=== PATIENT | female | born 1965 | race Caucasian/White ===

== ENCOUNTER 2020-10-01 14:57 | Inpatient (IN) | payer MEDICAID ==
[~2020-10-01] VITALS: Ht 167.6 cm; Wt 123.4 kg
[2020-10-01 15:48] LABS: BASOPHILS 0.2 % (0-2); EOSINOPHILS 1.5 % (0-7); HEMATOCRIT 24.9 % (36.0-48.0); IMMATURE GRANULOCYTES 0.1 % (0-5); LYMPHOCYTE ABS# 1.98 10x3/uL (1.18-3.74); LYMPHOCYTES 23.2 % (15-50); MCH 24.5 pg (26.0-34.0); MCHC 29.7 g/dL (31.0-37.0); MCV 82.5 fL (80.0-100.0); MEAN PLATELET VOLUME 9.7 fL (7.4-10.4); MONOCYTES 4.7 % (2-11); NEUTROPHIL ABS# 5.99 10x3/uL (1.56-6.13); NEUTROPHILS 70.3 % (40-80); PLATELET COUNT 359 10x3/uL (130-400); RBC 3.02 10x6/uL (4.00-5.40); RDW 18.5 % (11.5-14.5); WBC 8.5 10x3/uL (4.8-10.8)
[2020-10-01 15:55] LABS: INR 1.2 (0.85-1.17); PROTIME 14.1 SECONDS (11.6-15.0)
[2020-10-01 16:00] LABS: HEMOGLOBIN 7.4 g/dL (12-16)
[2020-10-01 16:28] LABS: ALKALINE PHOSPHATASE 70 U/L (30-120); ALT (SGPT) 22 U/L (10-68); BILIRUBIN - TOTAL 0.11 mg/dL (0.2-1.3); CALC OSMOLALITY 289 mosm/kg (275-300); CALCIUM 8.6 mg/dL (8.5-10.1); CARBON DIOXIDE 26.6 mmol/L (21.0-32.0); CHLORIDE - SERUM 108 mmol/L (98-107); CREATININE - SERUM 0.8 mg/dL (0.6-1.3); GLUCOSE 106 mg/dL (74-106); POTASSIUM - SERUM 4.3 mmol/L (3.5-5.1); PRO BNP 70 pg/mL (0-125); PROTEIN - SERUM 5.8 g/dL (6.4-8.2); SODIUM 144 mmol/L (136-145); UREA NITROGEN 21 mg/dL (7-18); eGFR NON AFRICAN AMERICAN 78 mL/min (90-120)
[2020-10-01 17:31] VITALS: BP 133/78
[2020-10-01] MEDS ORDERED: OMEPRAZOLE40 MG PO (18:04)
[2020-10-01] MEDS ORDERED: ZOCOR20 MG PO (18:05)
[2020-10-01] MEDS ORDERED: TOPROL XL25 MG PO (18:05)
[2020-10-01] MEDS ORDERED: CARAFATE1 G PO (18:05)
[2020-10-01] MEDS ORDERED: FERROUS SULFAT325 MG PO (18:06)
[2020-10-01] MEDS ORDERED: OS-CAL500 MG PO (18:07)
[2020-10-01] MEDS ORDERED: CENTRUM SILVER1 EAC3 PO (18:07)
[2020-10-01] MEDS ORDERED: VITAMIN D325 MC1 PO (18:07)
[2020-10-01] MEDS ORDERED: GARLIQUE PO (18:08)
[2020-10-01 18:34] VITALS: BP 133/78
--- NOTE | 2020-10-02 05:22 | NUR ---
Pt has been resting in bed with spouse in recliner next to her. Recieved 2 Units of PRBC without adverse reactions. Continues resting in bed with VSS. No c/o pain/discomfort.
[2020-10-02 05:42] LABS: BASOPHILS 0.6 % (0-2); EOSINOPHILS 3.9 % (0-7); HEMATOCRIT 27.4 % (36.0-48.0); HEMOGLOBIN 8.5 g/dL (12-16); IMMATURE GRANULOCYTES 0.1 % (0-5); LYMPHOCYTE ABS# 1.88 10x3/uL (1.18-3.74); LYMPHOCYTES 28.1 % (15-50); MCH 25.5 pg (26.0-34.0); MCV 82.3 fL (80.0-100.0); MONOCYTES 6.7 % (2-11); NEUTROPHIL ABS# 4.05 10x3/uL (1.56-6.13); NEUTROPHILS 60.6 % (40-80); PLATELET COUNT 291 10x3/uL (130-400); RBC 3.33 10x6/uL (4.00-5.40); RDW 17.1 % (11.5-14.5); RETIC 2.41 % (0.45-2.28); WBC 6.7 10x3/uL (4.8-10.8)
[2020-10-02 05:54] LABS: % SATURATION 4 % (15-55); IRON 14 ug/dl (35-150); TOTAL IRON BIND CAPACITY 324 ug/dl (260-445); UNSAT IRON BIND CAPACITY 310 ug/dl (150-375)
[2020-10-02 06:23] LABS: ALBUMIN 2.7 g/dL (3.4-5.0); ALKALINE PHOSPHATASE 62 U/L (30-120); ALT (SGPT) 20 U/L (10-68); BILIRUBIN - TOTAL 0.28 mg/dL (0.2-1.3); CALCIUM 8.5 mg/dL (8.5-10.1); CARBON DIOXIDE 26.8 mmol/L (21.0-32.0); CHLORIDE - SERUM 111 mmol/L (98-107); CREATININE - SERUM 0.8 mg/dL (0.6-1.3); FERRITIN 15 ng/mL (3-244); GLUCOSE 87 mg/dL (74-106); PROTEIN - SERUM 5.5 g/dL (6.4-8.2); SODIUM 145 mmol/L (136-145); eGFR NON AFRICAN AMERICAN 78 mL/min (90-120)
[2020-10-02 06:25] LABS: CALC OSMOLALITY 288 mosm/kg (275-300); POTASSIUM - SERUM 3.6 mmol/L (3.5-5.1); UREA NITROGEN 15 mg/dL (7-18)
[2020-10-02 08:07] VITALS: BP 104/46
[2020-10-02 09:34] LABS: BILIRUBIN NEGATIVE (NEGATIVE); KETONE NEGATIVE (NEGATIVE); NITRITE NEGATIVE (NEGATIVE); UROBILINOGEN NORMAL mg/dL (< 2)
[2020-10-02 09:36] LABS: BACTERIA MODERATE HPF (NONE SEEN); SQUAMOUS EPITHELIAL 0-5 HPF (0-4)
--- NOTE | 2020-10-02 11:47 | NUR ---
PT BACK TO ROOM FROM PACU IN STABLE CONDITION
[2020-10-02] MEDS ORDERED: PROTONIX40 MG PO (12:39)
[2020-10-02 13:38] VITALS: Ht 167.6 cm; Wt 123.4 kg
[2020-10-02] MEDS ORDERED: PEPCID40 MG PO (14:07)
--- NOTE | 2020-10-02 19:32 | MORECARE ---
CASE MANAGEMENT DISCHARGE SUMMARY PATIENT: ANURAG SHEFFIELD UNIT: [id number] ADM DATE: 10/01/20 AGE: 55 : 63 SEX: F ROOM/BED: D.2206 AUTHOR: JUANISDOC PHYSICIAN: REFERRING PHYSICIAN: JANE ZHENG MD DATE OF SERVICE: 10/02/20 Case Management Discharge Planning Summary DCP REVIEW SUMMARY ANTICIPATED D/C DATE: 10/02/2020 EXPECTED LOS : 1 CASE STATUS: DCP Initiated INITIAL REVIEW: 10/01/2020 INITIAL REVIEWER: Oscar Ambrose FINAL DISCHARGE DISPOSITION: : FINAL REVIEWER: FINAL REVIEW DATE: DCP Focus Questions & Answers DCP Evaluation QUESTION: ANSWER Patient gives permission to discuss discharge plans with: (name, relationship and number) : spouse, Andrade Sheffield, Patient's ability to cope with chronic illness : d. No chronic illness Patient's current cognitive status: : *Oriented to person, place, situation, time and present Family / Caregiver's ability to cope with chronic illness: : a. Adequate (ability to meet patient's medical needs, ensures patient attends medical appts.) Patient and/or caregiver agree upon recommended discharge plan? : Yes Physical Status: : Independent with ADL's Family / Caregiver's ability to cope with chronic illness: : a. Adequate (ability to meet patient's medical needs, ensures patient attends medical appts.) Functional screen assessment: : Basic needs can adequately be met by self Does the patient have the ability to pay for or attain post discharge needs / services? : Yes Living Arrangements: : Home with Spouse/Significant Other Is there a likelihood that the patient will require additional services to return to the preadmission environment? : No Equipment needed for post hospitalization: : None Baseline cognitive status: : *Oriented to person, place, situation, time and present Patient with capacity for self-care or can be cared for in same environment as prior to hospitalization? : Yes Physical environment modification needed / anticipated for discharge: : No Medication Management: : Patient states can afford medications Medication Management: : Patient states can read and understand medication labels Pharmacy name(s): : [facility] in [place] Does Patient have transportation to get home and to follow-up medical appointments when discharged from the hospital? : Yes Would patient like to participate in any Care Coordination programs (if applicable): : Not applicable Does the patient have electricity at home? : Yes Does the patient have running water in their house? : Yes Equipment in use: : None Mental health screen: : No mental health history DCP Re-evaluation QUESTION: ANSWER Would patient like to participate in any Care Coordination programs (if applicable): : Not applicable PATIENT: NAURAG SHEFFIELD ENCOUNTER: [id number] MEDICAL RECORD#: [id number] ADMISSION DATE: 10/01/2020 DISCHARGE DATE: 10/02/2020 ATTENDING MD: JANE BAIRD : AGE: 55 MARITAL STATUS: M DC PLAN ID: [id number] FACILITY: [facility] PRINTED ON: 10/02/20 19:32 CT All edits/amendments must be made on the electronic document DICTATION DATE: 10/02/201931 SOLUTION ARCHITECT: VENUS 10/02/201931 RPT#: [id number] DC DATE:10/02/20 STATUS: DIS IN [facility] [address] [place] [address] END OF REPORT
--- NOTE | 2020-10-02 19:43 | MORECARE ---
CASE MANAGEMENT DISCHARGE SUMMARY PATIENT: ANURAG SHEFFIELD UNIT: [id number] ADM DATE: 10/01/20 AGE: 55 : 63 SEX: F ROOM/BED: D.2206 AUTHOR: JUANISDOC PHYSICIAN: REFERRING PHYSICIAN: JANE ZHENG MD DATE OF SERVICE: 10/02/20 Case Management Discharge Planning Summary COMMENTS ENTERED DATE: 10/02/20 19:32 CT COMMENT TYPE: Discharge Planning REVIEWER: Oscar Ambrose CM met with patient to complete DC plan and to evaluate needs. Patient lives independently with her spouse, Andrade Sheffield, . Patient stated that her home is safe and has electricity and running water. Patient stated that she has no problems paying for medications and she fills her medications at [facility] in [place]. Patient stated that her primary care physician is Dr. Eckert. At discharge, the patient plans to return home and feels this is a safe discharge. CM discussed availability of home health, rehab services, and medical equipment. Patient voiced no other needs at this time and is satisfied with DC plan. Transportation provider at discharge will be with her , Andrade. CM will continue to follow and will assist as needed with dc plans/needs. DCP REVIEW SUMMARY ANTICIPATED D/C DATE: 10/02/2020 EXPECTED LOS : 1 CASE STATUS: DCP Initiated INITIAL REVIEW: 10/01/2020 INITIAL REVIEWER: Oscar Ambrose FINAL DISCHARGE DISPOSITION: : FINAL REVIEWER: FINAL REVIEW DATE: DCP Focus Questions & Answers DCP Evaluation QUESTION: ANSWER Patient gives permission to discuss discharge plans with: (name, relationship and number) : spouse, Andrade Sheffield, Patient's ability to cope with chronic illness : d. No chronic illness Patient's current cognitive status: : *Oriented to person, place, situation, time and present Family / Caregiver's ability to cope with chronic illness: : a. Adequate (ability to meet patient's medical needs, ensures patient attends medical appts.) Patient and/or caregiver agree upon recommended discharge plan? : Yes Physical Status: : Independent with ADL's Family / Caregiver's ability to cope with chronic illness: : a. Adequate (ability to meet patient's medical needs, ensures patient attends medical appts.) Functional screen assessment: : Basic needs can adequately be met by self Does the patient have the ability to pay for or attain post discharge needs / services? : Yes Living Arrangements: : Home with Spouse/Significant Other Is there a likelihood that the patient will require additional services to return to the preadmission environment? : No Equipment needed for post hospitalization: : None Baseline cognitive status: : *Oriented to person, place, situation, time and present Patient with capacity for self-care or can be cared for in same environment as prior to hospitalization? : Yes Physical environment modification needed / anticipated for discharge: : No Medication Management: : Patient states can afford medications Medication Management: : Patient states can read and understand medication labels Pharmacy name(s): : [facility] in [place] Does Patient have transportation to get home and to follow-up medical appointments when discharged from the hospital? : Yes Would patient like to participate in any Care Coordination programs (if applicable): : Not applicable Does the patient have electricity at home? : Yes Does the patient have running water in their house? : Yes Equipment in use: : None Mental health screen: : No mental health history DCP Re-evaluation QUESTION: ANSWER Would patient like to participate in any Care Coordination programs (if applicable): : Not applicable PATIENT: ANURAG SHEFFIELD ENCOUNTER: [id number] MEDICAL RECORD#: [id number] ADMISSION DATE: 10/01/2020 DISCHARGE DATE: 10/02/2020 ATTENDING MD: JANE BAIRD : AGE: 55 MARITAL STATUS: M DC PLAN ID: [id number] FACILITY: [facility] PRINTED ON: 10/02/20 19:43 CT All edits/amendments must be made on the electronic document DICTATION DATE: 10/02/201941 TRANSPLANT RN: VENUS 10/02/201941 RPT#: [id number] DC DATE:10/02/20 STATUS: DIS IN [facility] [address] [place] [address] END OF REPORT
--- NOTE | 2020-10-03 13:27 | OP ---
PATIENT NAME: ANURAG SHEFFIELD MEDICAL RECORD: [id number] :63 LOCATION:D.MS [id number] ADMISSION DATE:10/01/20 SURGEON: MADHU LOBATO MD DATE OF OPERATION: 10/02/2020 PREOPERATIVE DIAGNOSIS: Upper gastrointestinal bleeding. POSTOPERATIVE DIAGNOSES: 1. Upper gastrointestinal bleeding, with moderate gastritis likely the source of bleeding. 2. Large paraesophageal hernia. PROCEDURE: Esophagogastroduodenoscopy with antral biopsy. SURGEON: Madhu Lobato MD SWATCH CHECKER: None. BLOOD LOSS: Minimal. ANESTHESIA: IV sedation. COMPLICATIONS: None. The risks, possible complications, and alternatives of the procedure were explained to the patient. She elected to proceed. ENDOSCOPIC COURSE: The patient was conveyed to endoscopy suite electively on 10/02/2020. IV sedation was induced by the anesthesia staff. A bite block was inserted. A gastroscope was inserted into the mouth. It was advanced easily into the hypopharynx. The esophagus was easily intubated as were the stomach and duodenum. Upon withdrawal, retroflexed and angulus views were obtained. Antral biopsies were obtained. The endoscope was then withdrawn under direct vision. I have contacted the patient's hospitalist team. The patient is already on a proton pump inhibitor twice daily. I am going to add an H2 rolando at night. I am going to see the patient back in the office. I am going to recommend that the patient undergo a laparoscopic paraesophageal hernia repair. TRANSINT:[id number] Voice Confirmation ID: [id number] DOCUMENT ID: [id number] MADHU LOBATO MD at 1327 CC: [id number] DICTATION DATE: 10/02/20 1602 SENIOR ANALYST DEVELOPER: 10/02/20 2146 DIS IN 10/02/20 [facility] [address] [place] [address]
== END 2020-10-02 15:00 | disposition home or self-care (01) | DRG 379 ==
LOC: D.MS 14:57
PROVIDERS: Surgery; ADMIT Emergency Medicine; ATTEND Emergency Medicine
PROC: 0DB78ZX Excision of Stomach, Pylorus, Via Natural or Artificial Opening Endoscopic, Diagnostic (ICD-10-PCS; principal; 2020-10-02 10:37)
DX: K29.01 Acute gastritis with bleeding (principal); K44.9 Diaphragmatic hernia without obstruction or gangrene; K21.9 Gastro-esophageal reflux disease without esophagitis; E78.5 Hyperlipidemia, unspecified; I10 Essential (primary) hypertension; J45.909 Unspecified asthma, uncomplicated; M19.90 Unspecified osteoarthritis, unspecified site; E66.9 Obesity, unspecified

== ENCOUNTER 2020-11-17 05:31 | Day surgery (SDC) | payer BC ==
[~2020-11-17] VITALS: Ht 167.6 cm; Wt 121.8 kg
[~2020-11-17 05:31] MED LIST: CARAFATE1 G PO; CENTRUM SILVER1 EAC3 PO; FERROUS SULFAT325 MG PO; GARLIQUE PO; OMEPRAZOLE40 MG PO; OS-CAL500 MG PO; PEPCID40 MG PO; PROTONIX40 MG PO; TOPROL XL25 MG PO; VITAMIN D325 MC1 PO; ZOCOR20 MG PO
[2020-11-17 06:02] LABS: BASOPHILS 0.7 % (0-2); EOSINOPHILS 2.2 % (0-7); HEMATOCRIT 39.5 % (36.0-48.0); HEMOGLOBIN 12.9 g/dL (12-16); LYMPHOCYTES 28.3 % (15-50); MCH 25.9 pg (26.0-34.0); MCHC 32.7 g/dL (31.0-37.0); MCV 79.2 fL (80.0-100.0); MEAN PLATELET VOLUME 7.5 fL (7.4-10.4); MONOCYTES 6.9 % (2-11); NEUTROPHILS 61.9 % (40-80); PLATELET COUNT 300 10x3/uL (130-400); RBC 4.99 10x6/uL (4.00-5.40); RDW 15.9 % (11.5-14.5); WBC 6.5 10x3/uL (4.8-10.8)
[2020-11-17 06:06] LABS: ANION GAP 13.2 mmol/L (8-16); CALCIUM 9.2 mg/dL (8.5-10.1); CARBON DIOXIDE 26.7 mmol/L (21.0-32.0); CREATININE - SERUM 0.9 mg/dL (0.6-1.3); POTASSIUM - SERUM 3.9 mmol/L (3.5-5.1)
[2020-11-17 06:39] VITALS: Ht 167.6 cm; Wt 121.8 kg
--- NOTE | 2020-11-17 09:32 | NUR ---
[facility] [employer] CAPSULE PLACED IN ESOPHAGUS, LOT# [id number] ID# [id number]
--- NOTE | 2020-11-17 09:46 | NUR ---
0940 PT. RETURNED TO 2520, HAS BRAVA MONITOR, SPOUSE AT SIDE, INSTRUCTIONS FOR ANDRADE WERE GIVEN PRE PROCEDURE TO PT AND PT'S SPOUSE. APPROPRIATE QUESTIONS WERE ASKED AND ANSWERED.
--- NOTE | 2020-11-18 12:25 | OP ---
PATIENT NAME: ANURAG SHEFFIELD MEDICAL RECORD: [id number] :63 LOCATION:D.OPS ADMISSION DATE: SURGEON: MADHU LOBATO MD DATE OF OPERATION: 11/17/2020 PREOPERATIVE DIAGNOSES: 1. Paraesophageal hernia. 2. Intractable gastroesophageal reflux disease. PROCEDURE: 1. Esophagogastroduodenoscopy without biopsies. 2. Placement of Smallwood pH monitoring device. SURGEON: Madhu Lobato MD DIRECTOR OF RETAIL ANALYTICS: None. BLOOD LOSS: Minimal. ANESTHESIA: IV sedation. COMPLICATIONS: None. The risks, possible complications, and alternatives of procedure were explained to the patient. She elects to proceed. ENDOSCOPIC COURSE: The patient was conveyed to the endoscopy suite electively on 11/17/2020. IV sedation was induced by the anesthesia staff. A bite block was inserted. A gastroscope was inserted into the mouth. It was advanced easily into the hypopharynx. The esophagus was easily intubated as was the stomach and duodenum. Upon withdrawal, retroflexed and angulus views were obtained. A large paraesophageal hernia was noted. I withdrew to the esophagogastric junction. It was at 29 cm. I then withdrew the endoscope after checking the length 3 times. The gastroscope was then removed. The Smallwood pH device was then easily advanced to 29 cm and then backed off to 23 cm. Suction was applied and the device was deployed. The deployment device was then removed. I then re-endoscoped the patient's esophagus. The Smallwood device was firmly fixated at 23 cm. The gastroscope was then withdrawn. The patient is going to be dismissed home with a Smallwood monitor. I will see her in the office in 2 to 3 weeks. TRANSINT:[id number] Voice Confirmation ID: [id number] DOCUMENT ID: [id number] MADHU LOBATO MD at 1225 CC: [id number] DICTATION DATE: 11/17/20923 DIRECTOR PARK: 11/17/2048 [facility] 11/17/20 [facility] [address] [place] [address]
== END 2020-11-17 10:30 | disposition home or self-care (01) ==
LOC: D.OPS 05:31
PROVIDERS: Anesthesiology; ATTEND Surgery
DX: K44.9 Diaphragmatic hernia without obstruction or gangrene (principal); K21.9 Gastro-esophageal reflux disease without esophagitis; E78.5 Hyperlipidemia, unspecified; I10 Essential (primary) hypertension